=== PATIENT | male | born 1995 | race Caucasian/White ===

== ENCOUNTER 2016-12-28 01:32 | Emergency (ER) | payer BC ==
[~2016-12-28] VITALS: Ht 185.4 cm; Wt 90.8 kg
[2016-12-28 03:06] LABS: HEMATOCRIT 48.8 % (38.0-50.0); MCH 30.3 PG (29.0-34.0); MCHC 35.5 G/DL (30.0-36.0); MCV 85.5 FL (86-99); MEAN PLAT.VOLUME 9.8 uM^3 (9.0-12.4); RBC DIS.WIDTH-CV 11.6 % (11.8-14.6); RBC DIS.WIDTH-SD 35.9 % (39-53); RED BLOOD COUNT 5.71 M/uL (4.00-5.50); WHITE BLOOD COUNT 8.2 K/uL (4.1-10.2)
[2016-12-28 03:14] LABS: CHLORIDE 102 mEq/L (99-109); POTASSIUM 3.8 mEq/L (3.7-5.4); SODIUM 137 mEq/L (136-147)
[2016-12-28 03:15] LABS: PLATELET COUNT 173 K/uL (156-360)
[2016-12-28] MEDS ORDERED: ZOFRAN ODT4 MG PO (03:16)
[2016-12-28 03:17] LABS: GLUCOSE 88 mg/dL (70-99)
[2016-12-28 03:18] LABS: ANION GAP 13 MEQ/L (2-14)
[2016-12-28 03:19] LABS: TOTAL BILIRUBIN 0.7 mg/dL (0.0-1.0)
[2016-12-28 03:20] LABS: ALKALINE PHOSPHATASE 60 IU/L (3-129); GFR ESTIMATE (CALCULATED) > 59 mL/min/
[2016-12-28 03:22] LABS: UREA NITROGEN (BUN) 12 mg/dL (9-23)
[2016-12-28 03:23] LABS: CREATINE KINASE 129 IU/L (1-294)
[2016-12-28] MEDS ORDERED: FLEXERIL10 MG PO (03:28)
[2016-12-28 03:42] VITALS: BP 153/67
== END 2016-12-28 03:42 | disposition home or self-care (01) ==
LOC: EXP 01:32 → EME 01:32 → EXP 03:42
PROVIDERS: Physician Assistant
DX: R11.2 Nausea with vomiting, unspecified (principal); M79.1 Myalgia
CPT/HCPCS: 80053; 81003; 82550; 85027; 99281; 99284; J1885; J2405; J7030